=== PATIENT | male | born 1960 | race Caucasian/White ===

== ENCOUNTER 2018-06-14 09:05 | Emergency (ER) | payer OTHER ==
[2018-06-14] MEDS: HYDROCODONE/APAP (5/325) TAB PO (09:42)
== END 2018-06-14 10:57 | disposition home or self-care (01) ==
LOC: FTE 09:05
DX: S42.202A Unspecified fracture of upper end of left humerus, initial encounter for closed fracture (principal); W10.9XXA Fall (on) (from) unspecified stairs and steps, initial encounter; Y92.9 Unspecified place or not applicable
CPT/HCPCS: 73030; 73060; 99283-25